=== PATIENT | female | born 1990 | race Caucasian/White ===

== ENCOUNTER 2017-01-03 03:08 | Emergency (ER) | payer BC, MEDICAID ==
[2017-01-03 03:45] LABS: #Basophils 0.1 thou/uL (0.0-0.2); #Eosinphils 0.2 thou/uL (0.0-0.7); #Lymphocytes 1.6 thou/uL (1.20-3.40); #Monocytes 0.8 thou/uL (0.11-0.59); #Neutrophils 4.9 thou/uL (1.40-6.50); %Basophils 0.9 % (0.0-1.0); %Eosinophils 3.1 % (0.0-10.0); %Lymphocytes 21.2 % (21.0-51.0); %Monocytes 9.9 % (0.0-10.0); Hematocrit 38.2 % (36.0-47.0); Mean Platelet Volume 8.2 fL (7.4-10.4); Red Blood Cell (RBC) Count 4.66 mill/uL (4.20-5.40); White Blood Cell (WBC) Count 7.6 thou/uL (4.8-10.8)
[2017-01-03] MEDS ORDERED: Sodium Chloride 0.9% 1,000 ML ONE (03:47)
[2017-01-03] MEDS ORDERED: Ondansetron HCl/PF 4 MG/2 ML Vial ONE (03:47)
[2017-01-03 03:57] LABS: Bilirubin Negative (Negative); Blood, Urine Moderate (Negative); Glucose, Urine (Dipstick) Negative (Negative); Ketone, Urine Negative (Negative); Nitrite Positive (Negative); Protein, Urine (Dipstick) 100 mg/dL (Neg-Trace); Urobilinogen 0.2 mg/dL (0.2-1.0)
[2017-01-03 04:00] LABS: Bacteria/HPF 4+ HPF (None Seen); RBC/HPF GREATER THAN 50-TNTC HPF (0-3)
[2017-01-03] MEDS ORDERED: Ketorolac Tromethamine 30 MG/ML VIAL ONE (04:04)
[2017-01-03 04:06] LABS: ALT (SGPT) 13 U/L (0-55); AST (SGOT) 13 U/L (5-34); Alkaline Phosphatase 91 U/L (40-150); Amylase 68 U/L (25-125); Anion Gap 15 mmol/L (10-20); BUN (Urea Nitrogen) 13 mg/dL (7.0-18.7); Bilirubin, Total 0.3 mg/dL (0.2-1.2); Calc. Creatinine Clearance 0 mL/min (70-130); Calcium 9.3 mg/dL (7.8-10.44); Carbon Dioxide 24 mmol/L (22-29); Chloride 103 mmol/L (98-107); Estimated GFR-MDRD 80; Globulin 3.5 g/dL (2.4-3.5); Lipase 36 U/L (8-78); Protein, Total 7.3 g/dL (6.0-8.3)
[2017-01-03] MEDS ORDERED: Nitrofurantoin Macrocrystal 50 MG CAP ONE (04:17)
[2017-01-03] MEDS ORDERED: Phenazopyridine HCl 97.5 MG TABLET ONE (04:17)
--- NOTE | 2017-01-03 09:34 | CT ---
PRELIMINARY REPORT/[facility]/EMERGENCY AFTER-HOURS PROCEDURE: EXAM: CT Abdomen and Pelvis Without Intravenous Contrast. CLINICAL HISTORY: 26 years old, female; Pain; Abdominal pain; Rebound pain; Right lower quadrant (rlq); Additional inf o: Patient gave 6 weeks ago vaginally TECHNIQUE: Axial computed tomography images of the abdomen and pelvis without intravenous contrast. Coronal and sagittal reformatted images were created and reviewed. COMPARISON: No relevant prior studies available. FINDINGS: Lower thorax: No acute findings. ABDOMEN: Liver: Unremarkable. Gallbladder and bile ducts: Unremarkable. No calcified stones. No ductal dilation. Pancreas: Unremarkable. No ductal dilation. Spleen: Unremarkable. No splenomegaly. Adrenals: Unremarkable. No mass. Kidneys and ureters: Unremarkable. No obstructing stones. No hydronephrosis. Stomach and bowel: Unremarkable. No obstruction. No mucosal thickening. Appendix: Normal appendix. PELVIS: Bladder: Unremarkable. No stones. Reproductive: Unremarkable as visualized. ABDOMEN and PELVIS: Intraperitoneal space: Small amount of high density pelvic fluid, most likely hemorrhagic less likel y infectious. Clinical correlation is suggested. If indicated followup pelvic sonography could be performed. Ruptured ovarian cyst is a primary consideration. No free air. Bones/joints: No acute fracture. No dislocation. Soft tissues: Unremarkable. Vasculature: Unremarkable. No abdominal aortic aneurysm. Lymph nodes: Unremarkable. No enlarged lymph nodes. IMPRESSION: 1. Normal appendix. No bowel obstruction. 2. Small amounts of high density pelvic fluid likely ruptured hemorrhagic cyst if indicated followup pelvic sonography could be performed. Thank you for allowing us to participate in the care of your patient. Dictated and Authenticated by: Carmelo Blanchard MD 01/03/2017 4:48 AM Central Time ([place] \T\ [place]) FINAL REPORT NONCONTRAST CT OF THE ABDOMEN AND PELVIS: FINDINGS: The appendix is normal in the right lower quadrant. There is a small amount of fluid in the cul-de- sac. The bladder is unremarkable-appearing. Unopacified large and small bowel appear within normal limits. No renal or ureteral calculus is noted. Unopacified liver, spleen, and pancreas appear wi thin normal limits. No definite free air is noted. No acute osseous abnormality is evident. IMPRESSION: Nonspecific fluid within the cul-de-sac. If there is concern for possible pelvic abnormalities, fur ther evaluation with pelvis ultrasound may be helpful. Agree with the preliminary report provided. POS: [facility]
== END 2017-01-03 11:18 | disposition home or self-care (01) ==
LOC: NAV ERS 03:08
DX: N39.0 Urinary tract infection, site not specified (principal); N83.209 Unspecified ovarian cyst, unspecified side; M06.9 Rheumatoid arthritis, unspecified; F32.9 Major depressive disorder, single episode, unspecified
CPT/HCPCS: 36415; 74176; 80053; 81003; 81015; 81025; 82150; 83690; 85025; 87077; 87086; 87186; 96361; 96374; 96375; J1885; J2405; J7050